=== PATIENT | male | born 1950 | race African-American/Black ===

== ENCOUNTER 2021-02-27 09:18 | Day surgery (SDC) | payer OTHER ==
[~2021-02-27] VITALS: Ht 175.3 cm; Wt 61.0 kg
[2021-02-27] VITALS (10 sets, daily range): BP systolic 129–159; BP diastolic 64–83; PULSE 17–69; TEMP 97.9–98.2
[2021-02-27 10:27] LABS: BASO % 0.5 % (0.0-2.0); EOS # 0.2 K/mm3 (0.0-0.7); GRAN # 4.7 K/mm3 (1.4-6.5); GRAN % 53.6 % (42.2-75.2); LYMPH # 2.9 K/mm3 (1.2-3.4); LYMPH % 33.4 % (20.0-51.0); MEAN CELL VOLUME 80 fl (80.0-100.0); MEAN CORPUSCULAR HGB CONC 30 g/dl (33.0-37.0); MEAN PLATELET VOLUME 8.1 fl (7.4-10.4); MONO # 0.9 K/mm3 (0.1-0.6); PLATELET COUNT 278 K/mm3 (130-400); RED BLOOD COUNT 3.87 M/mm3 (4.20-5.60); REDCELL DISTRIBUTION WIDTH-CV 16.8 % (11.5-14.5)
[2021-02-27] MEDS ORDERED: NORVASC 10MG10 MG PO (10:31)
[2021-02-27] MEDS ORDERED: ASPIRIN 81M81 MG/TA2 PO (10:32)
[2021-02-27] MEDS ORDERED: ZYRTEC 10MG10 MG PO (10:33)
[2021-02-27] MEDS ORDERED: VITAMIN D31000 I1 PO (10:33)
[2021-02-27] MEDS ORDERED: SENNA-S 50 MG-81 TAB PO (10:34)
[2021-02-27] MEDS ORDERED: APRESOLINE 10MG10 MG PO (10:35)
[2021-02-27] MEDS ORDERED: HCTZ 25MG TAB25 MG PO (10:35)
[2021-02-27 10:36] LABS: HEMATOCRIT 30.8 % (42.0-52.0); HEMOGLOBIN 9.3 g/dl (13.5-18.0); MEAN CORPUSCULAR HEMOGLOBIN 24 pg (27.0-31.0)
[2021-02-27] MEDS ORDERED: COZAAR100 MG PO (10:36)
[2021-02-27] MEDS ORDERED: XELPROS2.5 ML OP (10:36)
[2021-02-27] MEDS ORDERED: K-TAB20 PO (10:37)
[2021-02-27] MEDS ORDERED: MULTI-VITAMIN W1 TA1 PO (10:37)
[2021-02-27] MEDS ORDERED: SANCTURA20 MG PO (10:38)
[2021-02-27 10:43] LABS: ALBUMIN 3.7 gm/dL (3.4-4.8); BILIRUBIN,TOTAL 0.4 mg/dL (0.2-1.2); CALCIUM 9.9 mg/dL (8.4-10.2); CREATININE, serum 1.33 mg/dL (0.72-1.25); POTASSIUM 3.7 mmol/L (3.5-4.5); TOTAL PROTEIN 7.5 gm/dL (6.2-8.1)
[2021-02-27] MEDS ORDERED: NORCO 325 MG-51 TAB PO (12:31)
[2021-02-28 03:09] VITALS: BP 154/91; PULSE 65; TEMP 98.2
--- NOTE | 2021-02-28 03:44 | NUR ---
PT REPORTS THAT HE HASN'T SLEPT MORE THAN 15 MINUTES ALL NIGHT R/T RIGHT SIDED BACK PAIN. PT STATES THAT HE NORMALLY DOESN'T TAKE ANYTHING @ HOME FOR PAIN. PT REPOSITIONED IN BED WITH 2 ASSIST, UNABLE TO SCOOT SELF UP IN BED INDEPENDENTLY. Yvette DOHERTY MD CALLED ET NEW ORDERS RECEIVED FOR PAIN MEDICATION. TYLENOL PO ADMINISTERED. PT STATES THAT REPOSITIONING IN BED HAS HELPED PAIN SOME. DENIES OTHER NEEDS @ THIS TIME. RESPIRATIONS UNLABORED. CALL LIGHT WITHIN REACH.
[2021-02-28 07:57] VITALS: BP 141/82; PULSE 59; TEMP 98.7
--- NOTE | 2021-02-28 10:16 | NUR ---
Plan is to discharge home SW [facility] patient in room. This patient is blind and he lives alone in [place]. He reports that [facility] to [facility] for [facility] years. He has a management intern, RN, and a vocational case manager that assists him with cleaning, transportation, and occas. meals. He also receives Meals on Wheels. Patient has a cane but uses a walker as well. [facility] a [facility], where he also receives his medications at no cost. Patient states he is in the process of completing a MPOA through the [facility]. Patient states he is getting ready to move to [place] where his sister and other family members live. Sister: [place] but he does not have her number with him. D/C Plan: home
--- NOTE | 2021-02-28 11:11 | NUR ---
Patient alert and oriented, answers questions appropriately. See assessment. Abdomen soft, tender, non distended. Bowel sounds active x4 quads. +Flatus. Incision to L abdomen with edges well approximated, no redness or drainage noted. Post op exercises reviewed with patient. No c/o at this time.
[2021-02-28 11:31] VITALS: BP 117/75; PULSE 67; TEMP 97.9
[2021-02-28] MEDS ORDERED: LUTEIN6 MG PO (11:39)
[2021-02-28] MEDS ORDERED: FLOMAX 0.40.4 MG/CAP PO (11:39)
[2021-02-28] MEDS ORDERED: ENSURE 237 ML237 ML PO (11:40)
[2021-02-28] MEDS ORDERED: SENNA-LAX8.6 MG PO (11:40)
[2021-02-28] MEDS ORDERED: MULTI-VITAMIN W1 TA1 PO (11:43)
[2021-02-28] MEDS ORDERED: SENNA-S 50 MG-81 TAB PO (11:44)
--- NOTE | 2021-02-28 12:58 | NUR ---
Initial visit; Patient thanked [employer] Sales Manager for looking in on him and offering God's blessings, encouragement and to have [employer] Sales Manager keep him in her prayers.
--- NOTE | 2021-02-28 16:34 | NUR ---
Discharge instructions reviewed with patient, verbalized understanding. Discharged via wheelchair to auto/home. [facility] case management manager and Provider called several times throughout the day with updates. Patient blind, unable to sign paperwork, asked this nurse to sign for him after he agreed with discharge summary.
== END 2021-02-28 16:20 | disposition home or self-care (01) ==
LOC: SDCO 09:18 → SURG 14:21 → MEDICAL 02-28 13:07 → SDCO 02-28 16:20
PROVIDERS: Surgery
DX: K40.30 Unilateral inguinal hernia, with obstruction, without gangrene, not specified as recurrent (principal); I10 Essential (primary) hypertension; N40.0 Benign prostatic hyperplasia without lower urinary tract symptoms; E55.9 Vitamin D deficiency, unspecified; H40.9 Unspecified glaucoma; F17.210 Nicotine dependence, cigarettes, uncomplicated; I69.351 Hemiplegia and hemiparesis following cerebral infarction affecting right dominant side; Z20.822 Contact with and (suspected) exposure to COVID-19; H54.8 Legal blindness, as defined in USA; R91.8 Other nonspecific abnormal finding of lung field; M19.90 Unspecified osteoarthritis, unspecified site; Z79.82 Long term (current) use of aspirin; Z79.899 Other long term (current) drug therapy
CPT/HCPCS: OP; C1781; J0690; J2405; J2704; J3010; J7120